=== PATIENT | female | born 1995 | race African-American/Black ===

== ENCOUNTER 2017-04-13 18:26 | Emergency (ER) | payer OTHER ==
[2017-04-13 18:30] VITALS: BP 136/45; PULSE 95; TEMP 98.8; BMI 32.3
--- NOTE | 2017-04-13 18:30 | PDOC ---
Rapid Medical Evaluation Time Seen by Provider: 04/13/17 18:27 Medical Evaluation: 04/13/17 18:27 I have performed a brief in-person evaluation of this patient. The patient presents with a chief complaint of: abdominal pain with vaginal spotting and dysuria LMP 03/30/17 Pertinent physical exam findings: ABD: TTP to lower abdomen I have ordered the following: UPT, UA, urine cx, cbc, cmp The patient will proceed to the ED for further evaluation. Discharge Disposition - Diagnosis Abdominal pain - Referrals - Patient Instructions - Post Discharge Activity
[2017-04-13 18:49] LABS: BASO % 0.9 % (0-2.0); HEMATOCRIT 38.1 % (32.4-45.2); HEMOGLOBIN 12.1 GM/dL (10.7-15.3); LYMPH % 24.9 % (8-40); MCH 25.1 pg (25.7-33.7); MCHC 31.8 g/dl (32.0-36.0); MEAN CELL VOLUME 79.1 fl (80-96); MEAN PLT VOLUME 10.2 fl (7.5-11.1); MONO % 8.3 % (3.8-10.2); NEUT % 61.9 % (42.8-82.8); PLATELET COUNT 195 K/MM3 (134-434); RBC 4.82 M/mm3 (3.60-5.2); RDW 17.1 % (11.6-15.6); WHITE BLOOD COUNT 7.4 K/mm3 (4.0-10.0)
[2017-04-13 18:56] LABS: URINE APPEARANCE SLCLOUDY; URINE BILIRUBIN NEGATIVE (NEGATIVE); URINE BLOOD 1+ (NEGATIVE); URINE COLOR YELLOW; URINE GLUCOSE (UA) NEGATIVE (NEGATIVE); URINE KETONE NEGATIVE (NEGATIVE); URINE NITRITE POSITIVE (NEGATIVE); URINE PROTEIN NEGATIVE (NEGATIVE); URINE UROBILINOGEN NEGATIVE mg/dL (0.2-1.0)
[2017-04-13 18:57] LABS: URINE LEUK ESTERASE 1+ (NEGATIVE)
[2017-04-13 19:05] LABS: EPI CELLS RARE /HPF (FEW); URINE BACTERIA RARE /hpf (NONE SEEN); URINE MUCUS RARE; YEAST RARE
[2017-04-13 19:22] LABS: HCG,QUALITATIVE URINE NEGATIVE
[2017-04-13 20:01] LABS: ALBUMIN 3.8 g/dl (3.4-5.0); CALCIUM 9.2 mg/dL (8.5-10.1); GLUCOSE,RANDOM 83 mg/dL (74-106); TOT PROT 7.9 g/dl (6.4-8.2)
[2017-04-13 20:23] LABS: ALK PHOS 62 U/L (45-117); ANION GAP 8 (8-16); BILIRUBIN,TOTAL 0.3 mg/dL (0.2-1.0); BLOOD UREA NITROGEN 8 mg/dL (7-18); CHLORIDE 109 mmol/L (98-107); CO2 26 mmol/L (21-32); CREATININE 0.9 mg/dL (0.55-1.02); POTASSIUM 4.4 mmol/L (3.5-5.1); SGOT/AST 15 U/L (15-37); SGPT/ALT 15 U/L (12-78); SODIUM 143 mmol/L (136-145)
[2017-04-13] MEDS ORDERED: SULFAMETHOXAZOLE/TRIMETHOPRIM 800MG/160MG D.S. TABLET PO ONE (20:36)
--- NOTE | 2017-04-13 20:40 | PDOC ---
History of Present Illness - General History Source: Patient <Evan Bailey - Last Filed: 04/13/17 20:35> - General History Source: Patient - History of Present Illness Initial Comments: 04/13/17 20:59 The patient is a 21 year old female, with no significant past medical history, who presents to the emergency department with 2 days of suprapubic abdominal pain with new onset of slight burning on urination for 24 hours. LMP: February She denies chest pain, shortness of breath, headache and dizziness. She denies fever, chills, nausea, vomit, diarrhea and constipation. She denies frequency, urgency and hematuria. Allergies: NKDA <dOalys Quintanilla - Last Filed: 04/13/17 21:00> - General Chief Complaint: Pain Stated Complaint: ABD PAIN Time Seen by Provider: 04/13/17 18:27 Past History - Past Medical History CVA: No COPD: No DVT: No - Suicide/Smoking/Psychosocial Hx Smoking History: Never smoked Hx Alcohol Use: No Drug/Substance Use Hx: No Substance Use Type: None <Evan Bailey - Last Filed: 04/13/17 20:35> <Odalys Quintanilla - Last Filed: 04/13/17 21:00> - Past Medical History Allergies/Adverse Reactions: Allergies Allergy/AdvReac Type Severity Reaction Status Date / Time No Known Allergies Allergy Verified 04/13/17 18:30 Home Medications: Ambulatory Orders Sulfamethoxazole/Trimethoprim [Bactrim *Ds*] 1 tab PO BID #14 tablet 04/13/17 Review of Systems - Review of Systems Able to Perform ROS?: Yes Comments:: 04/13/17 20:59 CONSTITUTIONAL: Absent: fever, chills, diaphoresis, generalized weakness, malaise, loss of appetite HEENT: Absent: rhinorrhea, nasal congestion, throat pain, throat swelling, difficulty swallowing, mouth swelling, ear pain, eye pain, visual Changes CARDIOVASCULAR: Absent: chest pain, syncope, palpitations, irregular heart rate, lightheadedness , peripheral edema RESPIRATORY: Absent: cough, shortness of breath, dyspnea with exertion, orthopnea, wheezing, stridor, hemoptysis GASTROINTESTINAL: (+) suprapubic abdominal pain, Absent: abdominal distension, nausea, vomiting, diarrhea, constipation, melena, hematochezia GENITOURINARY: (+) dysuria, Absent: frequency, urgency, hesitancy, hematuria, flank pain, genital pain MUSCULOSKELETAL: Absent: myalgia, arthralgia, joint swelling SKIN: Absent: rash, itching, pallor HEMATOLOGIC/IMMUNOLOGIC: Absent: easy bleeding, easy bruising, lymphadenopathy, frequent infections ENDOCRINE: Absent: unexplained weight gain, unexplained weight loss, heat intolerance, cold intolerance NEUROLOGIC: Absent: headache, focal weakness or paresthesias, dizziness, unsteady gait, seizure, mental status changes, bladder or bowel incontinence PSYCHIATRIC: Absent: anxiety, depression, suicidal or homicidal ideation, hallucinations. <Odalys Quintanilla - Last Filed: 04/13/17 21:00> *Physical Exam - Vital Signs Last Vital Signs Temp Pulse Resp BP Pulse Ox 98.8 F 95 H 20 136/45 100 04/13/17 18:27 04/13/17 18:27 04/13/17 18:27 04/13/17 18:27 04/13/17 18:27 <Evan Bailey - Last Filed: 04/13/17 20:35> - Vital Signs Last Vital Signs Temp Pulse Resp BP Pulse Ox 98.8 F 95 H 20 136/45 100 04/13/17 18:27 04/13/17 18:27 04/13/17 18:27 04/13/17 18:27 04/13/17 18:27 <Odalys Quintanilla - Last Filed: 04/13/17 21:00> ED Treatment Course - LABORATORY CBC & Chemistry Diagram: 04/13/17 18:30 04/13/17 18:30 - ADDITIONAL ORDERS Additional order review: Laboratory Results 04/13/17 04/13/17 18:30 18:30 Sodium 143 Potassium 4.4 Chloride 109 H Carbon Dioxide 26 Anion Gap 8 BUN 8 Creatinine 0.9 Creat Clearance w eGFR > 60 Random Glucose 83 Calcium 9.2 Total Bilirubin 0.3 AST 15 ALT 15 Alkaline Phosphatase 62 Total Protein 7.9 Albumin 3.8 Urine Color Yellow Urine Appearance Slcloudy Urine pH 7.0 Ur Specific [place] 1.010 Urine Protein Negative Urine Glucose (UA) Negative Urine Ketones Negative Urine Blood 1+ H Urine Nitrite Positive Urine Bilirubin Negative Urine Urobilinogen Negative Ur Leukocyte Esterase 1+ H Urine WBC (Auto) 25 Urine RBC (Auto) 3 Ur Epithelial Cells Rare Urine Bacteria Rare Urine Mucus Rare Urine Yeast Rare Urine HCG, Qual Negative 04/13/17 18:30 RBC 4.82 MCV 79.1 L MCHC 31.8 L RDW 17.1 H MPV 10.2 Neutrophils % 61.9 Lymphocytes % 24.9 Monocytes % 8.3 Eosinophils % 4.0 Basophils % 0.9 <Evan Bailey - Last Filed: 04/13/17 20:35> - LABORATORY CBC & Chemistry Diagram: 04/13/17 18:30 04/13/17 18:30 - ADDITIONAL ORDERS Additional order review: Laboratory Results 04/13/17 04/13/17 18:30 18:30 Sodium 143 Potassium 4.4 Chloride 109 H Carbon Dioxide 26 Anion Gap 8 BUN 8 Creatinine 0.9 Creat Clearance w eGFR > 60 Random Glucose 83 Calcium 9.2 Total Bilirubin 0.3 AST 15 ALT 15 Alkaline Phosphatase 62 Total Protein 7.9 Albumin 3.8 Urine Color Yellow Urine Appearance Slcloudy Urine pH 7.0 Ur Specific [place] 1.010 Urine Protein Negative Urine Glucose (UA) Negative Urine Ketones Negative Urine Blood 1+ H Urine Nitrite Positive Urine Bilirubin Negative Urine Urobilinogen Negative Ur Leukocyte Esterase 1+ H Urine WBC (Auto) 25 Urine RBC (Auto) 3 Ur Epithelial Cells Rare Urine Bacteria Rare Urine Mucus Rare Urine Yeast Rare Urine HCG, Qual Negative 04/13/17 18:30 RBC 4.82 MCV 79.1 L MCHC 31.8 L RDW 17.1 H MPV 10.2 Neutrophils % 61.9 Lymphocytes % 24.9 Monocytes % 8.3 Eosinophils % 4.0 Basophils % 0.9 <Odalys Quintanilla - Last Filed: 04/13/17 21:00> Medical Decision Making - Medical Decision Making 04/13/17 20:41 prescribedDr. Leo: The scribe's documentation has been prepared under my direction and personally reviewed by me in its entirery. I confirm that the note above accurately reflects all work, treatment, procedures, and medical decision making performed by me. <Evan Bailey - Last Filed: 04/13/17 20:35> *DC/Admit/Observation/Transfer - Discharge Dispostion Admit: No <Evan Bailey - Last Filed: 04/13/17 20:35> - Attestations Scribe Attestion: 04/13/17 21:00 Documentation prepared by Odalys Quintanilla, acting as medical pathology teacher for Evan Bailey DO. <Odalys Quintanilla - Last Filed: 04/13/17 21:00> Diagnosis at time of Disposition: Abdominal pain Qualifiers: Abdominal location: unspecified location Qualified Code(s): R10.9 - Unspecified abdominal pain UTI (urinary tract infection) Qualifiers: Urinary tract infection type: site unspecified Hematuria presence: without hematuria Qualified Code(s): N39.0 - Urinary tract infection, site not specified - Discharge Dispostion Disposition: HOME Condition at time of disposition: Stable - Prescriptions Prescriptions: Sulfamethoxazole/Trimethoprim [Bactrim *Ds*] 1 tab PO BID #14 tablet - Referrals Referrals: Bhavin Altamirano MD [Staff Physician] - - Patient Instructions Printed Discharge Instructions: DI for Urinary Tract Infection (UTI) Additional Instructions: Please take medication as directed. Follow up with your doctor or the doctor referred to you. Drink plenty of fluids. REturn if any problems
== END 2017-04-13 20:52 | disposition home or self-care (01) ==
LOC: JER 18:26
DX: N39.0 Urinary tract infection, site not specified (principal)
CPT/HCPCS: 36415; 80053; 81003; 81015; 84703; 85025; 87086; 87186; 99281-25

== ENCOUNTER 2023-08-26 22:25 | Emergency (ER) | payer BC, OTHER ==
[2023-08-26 22:28] VITALS: BP 135/87; PULSE 85; RESP 18; TEMP 98.5; BMI 25.4
[2023-08-26] MEDS ORDERED: LIDOCAINE 4% PATCH TP ONE (22:59)
[2023-08-26] MEDS ORDERED: ACETAMINOPHEN 325 MG TABLET (FP) ONE ×2 (23:07→23:08)
[2023-08-26] MEDS: ACETAMINOPHEN 325 MG TABLET (FP) PO ONE (23:09)
[2023-08-26] MEDS: LIDOCAINE 5% TOPICAL PATCH TP ONE (23:09)
[2023-08-26] MEDS: LIDOCAINE PATCH REMOVAL MC SCH (23:10)
== END 2023-08-27 00:35 | disposition home or self-care (01) ==
LOC: JER 22:25
DX: S09.90XA Unspecified injury of head, initial encounter (principal); M54.2 Cervicalgia; W09.1XXA Fall from playground swing, initial encounter
CPT/HCPCS: 70450-TC; 72125-TC; 99284-25